=== PATIENT | female | born 1965 | race Asian ===

== ENCOUNTER → 2020-01-21 | Outpatient (CLI) | payer OTHER ==
[~2020-01-21] MED LIST: MECLIZINE HCL25 M1 PO; PRILOSEC 20 MG20 MG PO; ZOFRAN ODT4 MG PO
== END ==
LOC: MRI 14:08
PROVIDERS: ATTEND Orthopaedic Surgery Sports Medicine
DX: M19.012 Primary osteoarthritis, left shoulder (principal); M75.52 Bursitis of left shoulder

== ENCOUNTER → 2020-07-26 | Outpatient (CLI) | payer OTHER | LOC: MRI 11:01 | PROVIDERS: ATTEND Specialist | DX: M50.223 Other cervical disc displacement at C6-C7 level (principal); M48.02 Spinal stenosis, cervical region ==